=== PATIENT | male | born 1960 | race African-American/Black ===

== ENCOUNTER → 2019-04-21 | Outpatient (CLI) | payer OTHER ==
[~2019-04-21] MED LIST: ALBUTEROL SULFATE 0.083% NEB 2.5 MG/3 ML AMPUL NEB ONE
--- NOTE | 2019-04-22 10:08 | Pulmonary Function Test ---
Pulmonary Function Test Date of Procedure:: 04/22/19 INDICATION:: Dyspnea Referring Provider: Dr. Hernandes Bpm Analyst: Jasmine Nunez SENIOR CHEMICAL ENGINEER - Report Spirometry: Spirometry: pre-FVC: 2.65 L 68% post-FVC: 2.93 L 75% pre-FEV:1 1.82 L 58% post-FEV1: 2.31 L 73% pre-FEV1/FVC %: 69 post-FEV1/FVC%: 79 predicted: 81 [id number]%: 1.07 L 32% [id number]%: 2.20 L 67% Impression: Mild obstructive ventilatory defect. Good response to bronchodilator therapy. Restrictive defect is inferred by the decrease FVC. (Restrictive defect may mask the degree of obstruction.) If clinically indicated complete pulmonary function test would be warranted.
== END ==
LOC: RT 09:19
PROVIDERS: ATTEND Family Medicine
DX: R06.02 Shortness of breath (principal); R05 Cough
CPT/HCPCS: 94060

== ENCOUNTER 2020-08-12 09:15 | Emergency (ER) | payer OTHER ==
[2020-08-12] MEDS ORDERED: DEXAMETHASONE 4 MG TABLET PO ONE (10:48)
[2020-08-12] MEDS ORDERED: IPRATROPIUM/ALBUTEROL 0.5-2.5 MG/3 ML AMPUL NEB ONE (10:48)
--- NOTE | 2020-08-12 11:11 | ER Document Report ---
ED Respiratory Problem - General Chief Complaint: Shortness Of Breath Stated Complaint: BREATHING PROBLEM Primary Care Provider: SONIA URRUTIA MD [Primary Care Provider] - Follow up as needed Notes: CHIEF COMPLAINT: Shortness of breath HPI: 60-year-old male with asthma history presenting for shortness of breath over the last 2 days. is Covid positive at home. He has not had a fever. States when he has these episodes he normally can use his inhaler at home with relief but it has not been helping over the last 24 hours. No chest pain. Does report shortness of breath that feels similar to prior asthma exacerbations ROS: See HPI - all other systems were reviewed and are otherwise negative Constitutional: no fever Eyes: no drainage, no blurred vision ENT: no runny nose, no sore throat Cardiovascular: no chest pain Resp: + SOB, + cough GI: no vomiting, no diarrhea, no abdominal pain : no dysuria Integumentary: no rash Allergy: no hives Musculoskeletal: no extremity pain or swelling Neurological: no numbness/tingling, no weakness MEDICATIONS: I agree with the patient medications as charted by the RN. ALLERGIES: I agree with the allergies as charted by the RN. PAST MEDICAL HISTORY/PAST SURGICAL HISTORY: Reviewed and agree as charted by RN. SOCIAL HISTORY: Reviewed and agree as charted by RN. FAMILY HISTORY: No significant familial comorbid conditions directly related to patient complaint EXAM: Reviewed vital signs as charted by RN. CONSTITUTIONAL: Alert and oriented and responds appropriately to questions. Well-appearing; well-nourished HEAD: Normocephalic; atraumatic EYES: PERRL; Conjunctivae clear, sclerae non-icteric ENT: normal nose; no rhinorrhea; moist mucous membranes; pharynx without lesions noted, no uvula edema or deviation, no tonsillar hypertrophy, phonation normal NECK: Supple without meningismus; non-tender; no cervical lymphadenopathy, no masses CARD: RRR; no murmurs, no clicks, no rubs, no gallops; symmetric distal pulses RESP: Normal chest excursion without splinting. Mild tachypnea; breath sounds clear and equal bilaterally; no wheezes, no rhonchi, no rales, pulse oximetry 95% on room air not hypoxic ABD/GI: Normal bowel sounds; non-distended; soft, non-tender, no rebound, no guarding; no palpable organomegaly or masses. BACK: The back appears normal and is non-tender to palpation, there is no CVA tenderness EXT: Normal ROM in all joints; non-tender to palpation; no cyanosis, no effusions, no edema SKIN: Normal color for age and race; warm; dry; good turgor; no acute lesions noted NEURO: Moves all extremities equally; Motor and sensory function intact PSYCH: The patient's mood and manner are appropriate. Grooming and personal hygiene are appropriate. MDM: 60-year-old male presenting with shortness of breath over the last 2 days. No chest pain. Patient quarantining at home with Covid. Will obtain Covid screen will obtain chest x-ray will give breathing treatment and steroids The patient was evaluated during the global COVID-19 pandemic and that diagnosis was suspected/considered upon their initial presentation. Their evaluation, treatment and testing was consistent with current guidelines for patients who present with complaints or symptoms that may be related to COVID-19 TRAVEL OUTSIDE OF THE [place] IN LAST 30 DAYS: No - Related Data Allergies/Adverse Reactions: latex [Latex] Allergy (Verified 08/23/12 22:39) Penicillins Allergy (Verified 08/23/12 22:39) Home Medications: albuterol, crestor, farxiga Past Medical History - Social History Smoking Status: Former Smoker Chew tobacco use (# tins/day): No Frequency of alcohol use: None Drug Abuse: None Family History: Reviewed & Not Pertinent - Past Medical History Cardiac Medical History: Reports: Hx Hypercholesterolemia Denies: Hx Coronary Artery Disease, Hx Heart Attack, Hx Hypertension Pulmonary Medical History: Reports: Hx Asthma, Hx Bronchitis Denies: Hx Pneumonia Neurological Medical History: Denies: Hx Cerebrovascular Accident, Hx Seizures Endocrine Medical History: Reports: Hx Diabetes Mellitus Type 2 Musculoskeletal Medical History: Reports Hx Arthritis Past Surgical History: Reports: Hx Cholecystectomy - Immunizations Immunizations up to date: Yes Hx Diphtheria, Pertussis, Tetanus Vaccination: Yes Physical Exam - Vital signs Vitals: Temp Pulse Resp BP Pulse Ox 99.2 F 97 20 130/73 H 95 08/12/20 09:29 08/12/20 09:29 08/12/20 09:29 08/12/20 09:29 08/12/20 09:29 Course - Re-evaluation Re-evalutation: 08/12/20 13:21 Patient feels much better after breathing treatments and steroids. He is Covid positive. Will place on Zithromax, Decadron, albuterol, cough medication, follow-up PCP he will self quarantine at home - Vital Signs Vital signs: Temp Pulse Resp BP Pulse Ox 99.2 F 97 20 130/73 H 95 08/12/20 09:29 08/12/20 09:29 08/12/20 09:29 08/12/20 09:29 08/12/20 09:29 - Laboratory Results Laboratory Results Interpreted: 08/12/20 11:45 SARS-CoV-2 (PCR) DETECTED H Critical Laboratory Results Reviewed: No Critical Results - Radiology Results Critical Radiology Results Reviewed: No Critical Results Discharge - Discharge Clinical Impression: COVID-19 virus detected Dyspnea Qualifiers: Dyspnea type: shortness of breath Qualified Code(s): R06.02 - Shortness of breath; R06.00 - Dyspnea, unspecified; R06.01 - Orthopnea Condition: Stable Disposition: HOME, SELF-CARE Instructions: COVID-19 Guidance for Persons Under Investigation Additional Instructions: Your Covid test today was positive self quarantine at home for the next 10 days. Take the medications as prescribed. Use the albuterol inhaler 2 puffs every 4 hours as needed for shortness of breath. Follow-up with your primary care provider for reevaluation of symptoms call for appointment. If you were p rescribed a cough medication do not drive on this medication as it can make you drowsy. Return for worsening symptoms or shortness of breath Prescriptions: Hydrocodone Bit/Homatropine [Hycodan 5-1.5 mg Tablet] 1 tab PO Q4HP PRN #24 tablet PRN Reason: Dexamethasone [Decadron 4 Mg Tablet] 4 mg PO DAILY #7 tablet Albuterol Sulfate [Proair HFA Inhalation Aerosol 8.5 gm MDI] 2 puff IH Q4H PRN #1 mdi PRN Reason: Azithromycin [Zithromax 250 mg Tablet] 250 mg PO ASDIR PRN #6 tablet PRN Reason: Referrals: SONIA URRUTIA MD [Primary Care Provider] - Follow up as needed
--- NOTE | 2020-08-12 11:14 | RADIOLOGY REPORT (SQ) ---
EXAM DESCRIPTION: CHEST SINGLE VIEW IMAGES COMPLETED DATE/TIME: 08/12/2020 10:00 am REASON FOR STUDY: shortness of breath, cough COMPARISON: None. EXAM PARAMETERS: NUMBER OF VIEWS: One view. TECHNIQUE: Single frontal radiographic view of the chest acquired. RADIATION DOSE: NA LIMITATIONS: None. FINDINGS: LUNGS AND PLEURA: No opacities, masses or pneumothorax. No pleural effusion. MEDIASTINUM AND HILAR STRUCTURES: No masses. Contour normal. HEART AND VASCULAR STRUCTURES: Heart normal in size. Normal vasculature. BONES: No acute findings. HARDWARE: None in the chest. OTHER: No other significant finding. IMPRESSION: NO ACUTE RADIOGRAPHIC FINDING IN THE CHEST. TECHNICAL DOCUMENTATION: JOB ID: [id number] 2010 [employer]- All Rights Reserved Reading location - IP/workstation name: [email or web address]
[2020-08-12] MEDS: KETOROLAC TROMETHAMINE 60 MG/2 ML SDV IM ONE ×2 (12:12→12:30)
[2020-08-12] MEDS: OXYCODONE-ACETAMINOPHEN 5-325 MG TABLET PO ONE ×2 (12:13→12:30)
[2020-08-12 14:27] VITALS: BP 137/70
== END 2020-08-12 14:27 | disposition home or self-care (01) ==
LOC: ER 09:15
DX: U07.1 COVID-19 (principal); J45.909 Unspecified asthma, uncomplicated; E78.00 Pure hypercholesterolemia, unspecified; E11.9 Type 2 diabetes mellitus without complications; Z87.891 Personal history of nicotine dependence; Z79.899 Other long term (current) drug therapy; Z79.84 Long term (current) use of oral hypoglycemic drugs; Z91.040 Latex allergy status; Z88.0 Allergy status to penicillin
CPT/HCPCS: 94640; 99284; 0202U ×23; 71045; J8540; J1885

== ENCOUNTER 2020-08-15 01:15 | Inpatient (IN) | payer OTHER ==
[2020-08-15 01:48] LABS: ABSOLUTE LYMPHOCYTES (AUTO) 0.7 10^3/uL (0.5-4.7); ABSOLUTE MONOCYTES (AUTO) 0.8 10^3/uL (0.1-1.4); ABSOLUTE NEUT (AUTO) 7.7 10^3/uL (1.7-8.2); BASOPHILS % (AUTO) 0.1 % (0-2); HEMATOCRIT 37.8 % (37.9-51.0); HEMOGLOBIN 12.9 g/dL (13.5-17.0); MEAN CORPUSCULAR HGB CONC 34.2 g/dL (32.0-36.0); MEAN CORPUSCULAR VOLUME 85 fl (80-97); MONOCYTES % (AUTO) 8.3 % (3-13); PLATELET COUNT 264 10^3/uL (150-450); RED BLOOD COUNT 4.47 10^6/uL (4.35-5.55); SEGMENTED NEUTROPHILS % (AUTO) 83.6 % (42-78); TOTAL CELLS COUNTED % (AUTO) 100 %; WHITE BLOOD COUNT 9.2 10^3/uL (4.0-10.5)
[2020-08-15 02:18] LABS: VENOUS BLOOD BASE EXCESS 1.8 mmol/L; VENOUS BLOOD HCO3 25.9 mmol/L (20-32); VENOUS BLOOD PH 7.44 (7.30-7.42)
--- NOTE | 2020-08-15 02:23 | RADIOLOGY REPORT (SQ) ---
CLINICAL HISTORY: +COVID; shortness of breath COMPARISON: 08/12/2020. TECHNIQUE: XR CHEST 1 VIEW 08/15/2020 12:00 AM PLATE EMBOSSER FINDINGS: The heart is borderline in size. There is minimal bibasilar airspace disease. There is no pleural effusion. There is no pneumothorax. There are no acute osseous findings. IMPRESSION: Possible bibasilar pneumonia.
[2020-08-15] MEDS ORDERED: LEVOFLOXACIN 750 MG/D5W RTU 750 MG/150 ML RTUPB IV ONE (02:30)
[2020-08-15] MEDS ORDERED: ACETAMINOPHEN 325 MG TABLET PO ONE (02:30)
--- NOTE | 2020-08-15 02:33 | ER Document Report ---
ED Respiratory Problem - General Chief Complaint: Shortness Of Breath Stated Complaint: SHORTNESS OF BREATH Time Seen by Provider: 08/15/20 02:29 Mode of Arrival: Ambulatory Information source: Patient Notes: 60-year-old male with a past medical history significant for asthma and diabetes presents to the emergency room with worsening shortness of breath that he has had for the past 3 days. Patient states he was seen here on August 12 was diagnosed with Covid was discharged home on Zithromax, Decadron, albuterol, and cough medicine. States he has had to use his nebulizer for the past 2 days without improvement. States his tested positive on August 05 for Covid he had not been tested prior to this episode not on home oxygen. TRAVEL OUTSIDE OF THE [place] IN LAST 30 DAYS: No - Related Data Allergies/Adverse Reactions: latex [Latex] Allergy (Verified 08/23/12 22:39) Penicillins Allergy (Verified 08/23/12 22:39) Home Medications: hydrocodone, dexamethasone, azithromycin5 Past Medical History - General Information source: Patient - Social History Smoking Status: Former Smoker Frequency of alcohol use: None Drug Abuse: None Family History: Reviewed & Not Pertinent Patient has homicidal ideation: No - Past Medical History Cardiac Medical History: Reports: Hx Hypercholesterolemia Denies: Hx Coronary Artery Disease, Hx Heart Attack, Hx Hypertension Pulmonary Medical History: Reports: Hx Asthma, Hx Bronchitis Denies: Hx Pneumonia Neurological Medical History: Denies: Hx Cerebrovascular Accident, Hx Seizures Endocrine Medical History: Reports: Hx Diabetes Mellitus Type 2 Musculoskeletal Medical History: Reports Hx Arthritis Past Surgical History: Reports: Hx Cholecystectomy - Immunizations Immunizations up to date: Yes Hx Diphtheria, Pertussis, Tetanus Vaccination: Yes Review of Systems - Review of Systems Constitutional: No symptoms reported EENT: No symptoms reported Cardiovascular: No symptoms reported Respiratory: Short of breath, Wheezing Gastrointestinal: No symptoms reported Genitourinary: No symptoms reported Musculoskeletal: No symptoms reported Skin: No symptoms reported Neurological/Psychological: No symptoms reported -: Yes All other systems reviewed and negative Physical Exam - Vital signs Vitals: Resp Pulse Ox 28 H 97 08/15/20 01:16 08/15/20 01:16 - General General appearance: Appears well, Alert In distress: Moderate - Respiratory Respiratory status: Respiratory distress, Tachypnea Chest status: Nontender Breath sounds: Normal Chest palpation: Normal - Cardiovascular Rhythm: Tachycardia Heart sounds: Normal auscultation Murmur: No - Neurological Neuro grossly intact: Yes Cognition: Normal Orientation: AAOx4 Michael Coma Scale Eye Opening: Spontaneous Michael Coma Scale Verbal: Oriented Michael Coma Scale Motor: Obeys Commands [place] Coma Scale Total: 15 Speech: Normal Motor strength normal: LUE, RUE, LLE, RLE Sensory: Normal - Skin Skin Temperature: Warm Skin Moisture: Dry Skin Color: Normal Course - Re-evaluation Re-evalutation: 08/15/20 02:49 Reviewed lab and x-ray results with patient. Patient is tachypneic and hypoxic on examination. Tachycardic. Febrile. Patient has been on p.o. azithromycin for 3 days. We will switch to IV Levaquin. Increase oxygen to 3 L nasal cannula. Patient aware of bibasilar pneumonia on x-ray. Remaining labs are still pending. - Vital Signs Vital signs: Temp Pulse Resp BP Pulse Ox 100.5 F H 104 H 22 H 134/73 H 95 08/15/20 01:31 08/15/20 01:29 08/15/20 04:08 08/15/20 04:08 08/15/20 04:08 - Laboratory Results Result Diagrams: 08/15/20 01:25 08/15/20 01:25 Laboratory Results Interpreted: 08/15/20 08/15/20 08/15/20 01:25 01:25 01:25 Hgb 12.9 L Hct 37.8 L RDW 15.0 H Lymph % (Auto) 8.0 L Seg Neutrophils % 83.6 H VBG pH 7.44 H Glucose 138 H Critical Laboratory Results Reviewed: No Critical Results - Radiology Results Critical Radiology Results Reviewed: Yes - Bibasilar pneumonia Attending or Supervising Physician who Reviewed Radiology: PRANAV POMPA IV - Started on IV Levaquin - EKG Interpretation by Wy EKG shows normal: Sinus rhythm Additional EKG results interpreted by me: 08/15/20 02:47 EKG was interpreted by ER physician Dr. Cintron No acute STEMI Normal sinus rhythm Rate 97 Borderline left axis deviation Borderline T wave abnormality No previous EKG for comparison - Consults Dr. Ortega Time consulted: 04:25 - Accepts admission Reason for consultation: 08/15/20 04:41 Discussed lab findings, physical presentation, vital signs. Agrees to admission. Consulted provider: will come to ER Discharge - Discharge Clinical Impression: COVID-19, Pneumonia due to COVID-19 virus, Tachypnea, Hypoxia, COVID-19 virus detected Condition: Good Disposition: ADMITTED INPATIENT Admitting Provider: Jordan (Hospitalist) Unit Admitted: Medical Floor
[2020-08-15 02:36] LABS: ALBUMIN 3.8 g/dL (3.5-5.0); ALKALINE PHOSPHATASE 79 U/L (38-126); ANION GAP 9 (5-19); ASPARTATE AMINO TRANSFERASE 29 U/L (17-59); BILIRUBIN,DIRECT 0.3 mg/dL (0.0-0.4); BILIRUBIN,TOTAL 0.8 mg/dL (0.2-1.3); BLOOD UREA NITROGEN 15 mg/dL (7-20); CALCIUM 8.7 mg/dL (8.4-10.2); CARBON DIOXIDE 27 mmol/L (22-30); CHLORIDE 103 mmol/L (98-107); GLUCOSE 138 mg/dL (75-110); POTASSIUM 3.8 mmol/L (3.6-5.0); TOTAL PROTEIN 7.1 g/dL (6.3-8.2)
[2020-08-15] MEDS ORDERED: MAGNESIUM CITRATE 296 ML BOTTLE PO ONE (04:15)
[2020-08-15] MEDS ORDERED: ONDANSETRON ODT 4 MG TAB (6 TAB/ER DISP) PO PRN (04:15)
[2020-08-15] MEDS ORDERED: ONDANSETRON 4 MG TAB.RAPDIS PO PRN (05:16)
[2020-08-15] MEDS ORDERED: ONDANSETRON HCL INJ/PF 4 MG/2 ML SDV IV PRN (05:16)
[2020-08-15] MEDS ORDERED: IPRATROPIUM/ALBUTEROL 0.5-2.5 MG/3 ML AMPUL NEB PRN (05:16)
[2020-08-15] MEDS ORDERED: BENZONATATE 100 MG CAPSULE PO PRN (05:26)
--- NOTE | 2020-08-15 05:35 | PDOC H&P ---
History of Present Illness Admission Date/PCP: 08/15/20 04:58 SONIA URRUTIA MD History of Present Illness: REN MALIN SR is a 60 year old male with past medical history significant for T2DM, chronic asthma who presents the ED with 5-day history of progressive fever/chills/shortness of breath/FABIAN/productive cough. Patient's diagnosed with COVID-19 on 08/05/2020 and patient began developing symptoms on 08/11, subsequently tested positive for COVID-19 on 08/12 patient came to the ED here. Patient was discharged home with oral steroids and azithromycin. Unfortunately, patient continued to decline with regards to his breathing status and he returned to the hospital today with oxygen saturations in the mid to lower 80s at rest. Patient does not require home oxygen prior to admission. Chest x-ray showed bilateral infiltrates. WBC count 9.2. Patient was given a dose of Le vaquin in the ED. Patient admitted to Covid unit with standard of care treatment. Past Medical History Cardiac Medical History: Reports: Hyperlipidema Denies: Coronary Artery Disease, Myocardial Infarction, Hypertension Pulmonary Medical History: Reports: Asthma, Bronchitis Denies: Pneumonia Neurological Medical History: Denies: Seizures Endocrine Medical History: Reports: Diabetes Mellitus Type 2 Musculoskeltal Medical History: Reports: Arthritis Hematology: Denies: Anemia Past Surgical History Past Surgical History: Reports: Cholecystectomy Social History Information Source: Patient, Emergency Med Personnel Lives with: Family Smoking Status: Former Smoker Electronic Cigarette use?: No Hx Recreational Drug Use: No Hx Prescription Drug Abuse: No - Advance Directive Resuscitation Status: Full Code Surrogate healthcare decision maker:: Admitting diagnosis: COVID-19 pneumonia All aspects of code status discussed with patient/POA including cardioversion, chest compressions, and intubation and the patient/POA indicated they wish to be full code MPOA is designated as: Nancy Time spent: Greater than 16 minutes Family History Family History: Reviewed & Not Pertinent, CAD, Malignancy Parental Family History Reviewed: Yes Children Family History Reviewed: Yes Sibling(s) Family History Reviewed.: Yes Medication/Allergy Home Medications: Pravastatin Sodium [Pravachol] 80 mg PO DAILY 08/23/12 Oxycodone HCl/Acetaminophen [Percocet 5-325 mg Tablet] 1 tab PO QID PRN 10/18/12 Hydrocodone/Acetaminophen [[place] 5-325 mg Tablet] 1 tab PO Q6 #20 tablet 11/28/15 Tamsulosin HCl [Flomax 0.4 mg Cap.sr] 0.4 mg PO DAILY #7 cap.sr.24h 11/28/15 Albuterol Sulfate [Proair HFA Inhalation Aerosol 8.5 gm MDI] 2 puff IH Q4H PRN #1 mdi 08/12/20 Azithromycin [Zithromax 250 mg Tablet] 250 mg PO ASDIR PRN #6 tablet 08/12/20 Dexamethasone [Decadron 4 Mg Tablet] 4 mg PO DAILY #7 tablet 08/12/20 Hydrocodone Bit/Homatropine [Hycodan 5-1.5 mg Tablet] 1 tab PO Q4HP PRN #24 tablet 08/12/20 Allergies/Adverse Reactions: latex [Latex] Allergy (Verified 08/23/12 22:39) Penicillins Allergy (Verified 08/23/12 22:39) Review of Systems All systems: reviewed and no additional remarkable complaints except as stated - Per HPI otherwise negative Physical Exam Vital Signs: Temp Pulse Resp BP Pulse Ox 100.5 F H 104 H 22 H 134/73 H 95 08/15/20 01:31 08/15/20 01:29 08/15/20 04:08 08/15/20 04:08 08/15/20 04:08 Intake & Output 08/13/20 08/14/20 08/15/20 06:59 06:59 06:59 Intake Total 150 Balance 150 Weight 100.3 kg Exam: General appearance: PRESENT: no acute distress, well-developed, well-nourished, acutely ill-appearing -Turkmen male, obese with BMI 34.6 Head exam: PRESENT: atraumatic, normocephalic Eye exam: PRESENT: conjunctiva pink. ABSENT: scleral icterus Mouth exam: PRESENT: moist Respiratory exam: PRESENT: Scant bilateral crackles ABSENT: rales, wheezes Cardiovascular exam: PRESENT: RRR. ABSENT: diastolic murmur, rubs, systolic murmur GI/Abdominal exam: PRESENT: normal bowel sounds, soft. ABSENT: distended, guarding, mass, organolmegaly, rebound, tenderness Neurological exam: PRESENT: alert, awake, oriented to person, oriented to place, oriented to time, oriented to situation Psychiatric exam: PRESENT: appropriate affect, normal mood Skin exam: PRESENT: dry, intact, warm Results Laboratory Results: 08/15/20 01:25 08/15/20 01:25 08/15/20 08/15/20 08/15/20 01:25 01:25 01:25 WBC 9.2 RBC 4.47 Hgb 12.9 L Hct 37.8 L MCV 85 MCH 29.0 MCHC 34.2 RDW 15.0 H Plt Count 264 Seg Neutrophils % 83.6 H VBG pH VBG pCO2 VBG HCO3 VBG Base Excess Sodium 138.7 Potassium 3.8 Chloride 103 Carbon Dioxide 27 Anion Gap 9 BUN 15 Creatinine 0.96 Est GFR ( Amer) > 60 Glucose 138 H Lactic Acid 1.4 Calcium 8.7 Total Bilirubin 0.8 AST 29 Alkaline Phosphatase 79 Total Protein 7.1 Albumin 3.8 08/15/20 01:25 WBC RBC Hgb Hct MCV MCH MCHC RDW Plt Count Seg Neutrophils % VBG pH 7.44 H VBG pCO2 39.0 VBG HCO3 25.9 VBG Base Excess 1.8 Sodium Potassium Chloride Carbon Dioxide Anion Gap BUN Creatinine Est GFR ( Amer) Glucose Lactic Acid Calcium Total Bilirubin AST Alkaline Phosphatase Total Protein Albumin 08/15/20 03:06 Troponin I < 0.012 Impressions: Chest X-Ray 08/15/20 00:00 IMPRESSION: Possible bibasilar pneumonia. Assessment and Plan - Diagnosis (1) Pneumonia due to COVID-19 virus Is this a current diagnosis for this admission?: Yes Plan: -Symptoms/history consistent with covid-19 infection -Covid-19 test: 08/12 -CXR showed: Bilateral infiltrates -standard of care vitamin supplements: zinc, ascorbic acid, vitamin d, melatonin -maintain magnesium of 2 mg/dL or higher -Current literaturedoes not show clear benefit from the use of remdesivir, plaquenil, and convalescent plasma -supplemental oxygen and BiPAP/CPAP as needed -prn combivent/nebs as able -do not hold anticoagulation unless actively bleeding or platelet count <50 -close monitoring for acute respiratory decline requiring ICU transfer and intubation -consider ivermectin/doxycycline combination therapy (2) Acute hypoxemic respiratory failure Is this a current diagnosis for this admission?: Yes Plan: Due to Covid pneumonia as above Supplemental oxygen to maintain saturation of 92% or higher Bronchial hygiene, pulmonary toilet Nebs as needed (3) T2DM (type 2 diabetes mellitus) Qualifiers: Diabetes mellitus manager terminal insulin use: without senior care use Diabetes mellitus complication status: without complication Qualified Code(s): E11.9 - Type 2 diabetes mellitus without complications Is this a current diagnosis for this admission?: Yes Plan: T2DM -accucheks, sliding scale insulin -long acting insulin indicated for HgA1C of 10 or greater -diet counseling -outpt FU with PCP (4) Obesity (BMI 30-39.9) Is this a current diagnosis for this admission?: Yes Plan: Needs to be counseled on weight loss (5) Chronic asthma Qualifiers: Asthma severity: mild Asthma persistence: intermittent Asthma complication type: uncomplicated Qualified Code(s): J45.20 - Mild intermittent asthma, uncomplicated Is this a current diagnosis for this admission?: Yes Plan: Does not follow with pulmonology Nebs as needed Uses home albuterol nebulizer intermittently - Time Time Spent with patient: 35 or more minutes Medications reviewed and adjusted accordingly: Yes Anticipated Discharge Disposition: Home, Self Care Anticipated Discharge Timeframe: within 72 hours - Inpatient Certification Based on my medical assessment, after consideration of the patient's comorbidities, presenting symptoms, or acuity I expect that the services needed warrant INPATIENT care.: Yes I certify that my determination is in accordance with my understanding of Medicare's requirements for reasonable and necessary INPATIENT services [42 CFR 412.3e].: Yes Medical Necessity: Significant Comorbidiites Make Outpatient Treatment Too Risky, Need Close Monitoring Due to Risk of Patient Decompensation, Risk of Complication if Not Cared For in Hospital, Risk of Diagnosis Which Will Require Inpatient Eval/Care/Monitoring
[2020-08-15] MEDS: METHYLPREDNISOLONE INJ 40 MG/1 ML SDV IV SCH ×2 (05:59→18:14)
[2020-08-15] MEDS ORDERED: DOXYCYCLINE HYCLATE INJ 100 MG VIAL IV SCH (06:00)
[2020-08-15 06:08] LABS: ABSOLUTE LYMPHOCYTES (AUTO) 0.5 10^3/uL (0.5-4.7); ABSOLUTE MONOCYTES (AUTO) 0.8 10^3/uL (0.1-1.4); ABSOLUTE NEUT (AUTO) 7.5 10^3/uL (1.7-8.2); BASOPHILS % (AUTO) 0.4 % (0-2); EOSINOPHILS % (AUTO) 0.3 % (0-6); HEMATOCRIT 36.2 % (37.9-51.0); HEMOGLOBIN 12.2 g/dL (13.5-17.0); LYMPHOCYTES % (AUTO) 5.7 % (13-45); MEAN CORPUSCULAR HEMOGLOBIN 28.9 pg (27.0-33.4); MEAN CORPUSCULAR HGB CONC 33.8 g/dL (32.0-36.0); MEAN CORPUSCULAR VOLUME 85 fl (80-97); MONOCYTES % (AUTO) 8.8 % (3-13); PLATELET COUNT 244 10^3/uL (150-450); RED BLOOD COUNT 4.24 10^6/uL (4.35-5.55); RED CELL DISTRIBUTION WIDTH 15.1 % (11.5-14.0); SEGMENTED NEUTROPHILS % (AUTO) 84.8 % (42-78); TOTAL CELLS COUNTED % (AUTO) 100 %; WHITE BLOOD COUNT 8.8 10^3/uL (4.0-10.5)
[2020-08-15 06:30] LABS: ANION GAP 6 (5-19); BLOOD UREA NITROGEN 14 mg/dL (7-20); CALCIUM 8.3 mg/dL (8.4-10.2); CARBON DIOXIDE 29 mmol/L (22-30); CHLORIDE 102 mmol/L (98-107); GLUCOSE 106 mg/dL (75-110); PHOSPHORUS 3.4 mg/dL (2.5-4.5)
[2020-08-15 06:34] LABS: APPEARANCE,URINE CLEAR; BILIRUBIN,URINE NEGATIVE (NEGATIVE); COLOR,URINE YELLOW; GLUCOSE, URINE >=500 mg/dL (NEGATIVE); KETONES,URINE TRACE mg/dL (NEGATIVE); LEUKOCYTE ESTERASE,URINE NEGATIVE (NEGATIVE); NITRITE,URINE NEGATIVE (NEGATIVE); PROTEIN,URINE 30 mg/dL (NEGATIVE); URINE SPECIFIC GRAVITY 1.025; UROBILINOGEN,URINE NEGATIVE mg/dL (<2.0)
[2020-08-15 07:13] LABS: C-REACTIVE PROTEIN 172.7 mg/L (<10.0)
[2020-08-15] MEDS: INSULIN LISPRO 100 UNIT/ML 3 ML VIAL SUBCUT SCH ×4 (09:41→22:08)
[2020-08-15] MEDS: IVERMECTIN 3 MG TABLET PO SCH (10:32)
[2020-08-15] MEDS: ENOXAPARIN SODIUM INJ 40 MG/0.4 ML DISP.SYRIN SUBCUT SCH (10:32)
[2020-08-15] MEDS: CHOLECALCIFEROL (D3) 1,000 UNIT (25 MCG) TABLET PO SCH (10:33)
[2020-08-15] MEDS: DOCUSATE SODIUM 100 MG CAPSULE PO SCH ×2 (10:33→11:21)
[2020-08-15] MEDS: TAMSULOSIN HCL 0.4 MG CAP.SR.24H PO SCH ×2 (10:33→11:22)
[2020-08-15] MEDS: ZINC SULFATE 220 MG CAPSULE PO SCH (10:33)
[2020-08-15] MEDS: ASCORBIC ACID 500 MG TABLET PO SCH ×2 (10:34→18:14)
[2020-08-15] MEDS: VITAMIN B COMPLEX TABLET PO SCH (10:34)
--- NOTE | 2020-08-15 15:14 | PDOC PROGRESS REPORT ---
Subjective Date:: 08/15/20 Subjective:: REN MALIN SR is a 60 year old male with past medical history significant fo r T2DM, chronic asthma who presents the ED with 5-day history of progressive fever/chills/shortness of breath/FABIAN/productive cough. Patient's diagnosed with COVID-19 on 08/05/2020 and patient began developing symptoms on 08/11, subsequently tested positive for COVID-19 on 08/12 patient came to the ED here. Patient was discharged home with oral steroids and azithromycin. Unfortunately, patient continued to decline with regards to his breathing status and he returned to the hospital today with oxygen saturations in the mid to lower 80s at rest. Patient does not require home oxygen prior to admission. Chest x-ray showed bilateral infiltrates. WBC count 9.2. Patient was given a dose of L evaquin in the ED. Patient admitted to Covid unit with standard of care treatment. D1 hospital stay 08/15/20 Patient was seen and examined at bedside. On 6L O2 via NC sats 95%,feels that he's breathing easier. No chest pain, no diarrhea, no palpitations. Afebrile. I was able to speak to his Nancy and updated her Reason For Visit: COVID19 PNEUMONIA,ACUTE HYPOXEMIC RESPIRATORY Physical Exam Vital Signs: Temp Pulse Resp BP Pulse Ox 98.9 F 84 20 115/63 97 08/15/20 11:23 08/15/20 11:23 08/15/20 11:23 08/15/20 11:23 08/15/20 11:23 Intake & Output 08/14/20 08/15/20 08/16/20 06:59 06:59 06:59 Intake Total 150 Output Total 700 Balance -550 Weight 100.3 kg 106.8 kg General appearance: PRESENT: cooperative, mild distress Head exam: PRESENT: atraumatic, normocephalic Eye exam: PRESENT: EOMI, PERRLA Mouth exam: PRESENT: moist Neck exam: PRESENT: full ROM Respiratory exam: PRESENT: crackles, rales, symmetrical, tachypnea Cardiovascular exam: PRESENT: RRR, +S1, +S2 GI/Abdominal exam: PRESENT: normal bowel sounds, soft. ABSENT: rebound, tenderness Extremities exam: PRESENT: full ROM, tenderness Musculoskeletal exam: PRESENT: full ROM Neurological exam: PRESENT: alert, awake, oriented to person, oriented to place, oriented to time, oriented to situation Psychiatric exam: PRESENT: normal mood Skin exam: PRESENT: normal color Results Laboratory Results: 08/15/20 06:00 08/15/20 06:00 08/15/20 08/15/20 08/15/20 01:25 01:25 01:25 WBC 9.2 RBC 4.47 Hgb 12.9 L Hct 37.8 L MCV 85 MCH 29.0 MCHC 34.2 RDW 15.0 H Plt Count 264 Seg Neutrophils % 83.6 H VBG pH VBG pCO2 VBG HCO3 VBG Base Excess Sodium 138.7 Potassium 3.8 Chloride 103 Carbon Dioxide 27 Anion Gap 9 BUN 15 Creatinine 0.96 Est GFR ( Amer) > 60 Glucose 138 H Lactic Acid 1.4 Calcium 8.7 Phosphorus Magnesium Ferritin Total Bilirubin 0.8 AST 29 Alkaline Phosphatase 79 C-Reactive Protein Total Protein 7.1 Albumin 3.8 Urine Color Urine Appearance Urine pH Ur Specific [place] Urine Protein Urine Glucose (UA) Urine Ketones Urine Blood Urine Nitrite Ur Leukocyte Esterase Urine WBC (Auto) Urine RBC (Auto) 08/15/20 08/15/20 08/15/20 01:25 06:00 06:00 WBC 8.8 RBC 4.24 L Hgb 12.2 L Hct 36.2 L MCV 85 MCH 28.9 MCHC 33.8 RDW 15.1 H Plt Count 244 Seg Neutrophils % 84.8 H VBG pH 7.44 H VBG pCO2 39.0 VBG HCO3 25.9 VBG Base Excess 1.8 Sodium 137.2 Potassium 4.0 Chloride 102 Carbon Dioxide 29 Anion Gap 6 BUN 14 Creatinine 0.97 Est GFR ( Amer) > 60 Glucose 106 Lactic Acid Calcium 8.3 L Phosphorus 3.4 Magnesium 2.3 Ferritin 344.00 Total Bilirubin AST Alkaline Phosphatase C-Reactive Protein 172.7 H Total Protein Albumin Urine Color Urine Appearance Urine pH Ur Specific [place] Urine Protein Urine Glucose (UA) Urine Ketones Urine Blood Urine Nitrite Ur Leukocyte Esterase Urine WBC (Auto) Urine RBC (Auto) 08/15/20 06:08 WBC RBC Hgb Hct MCV MCH MCHC RDW Plt Count Seg Neutrophils % VBG pH VBG pCO2 VBG HCO3 VBG Base Excess Sodium Potassium Chloride Carbon Dioxide Anion Gap BUN Creatinine Est GFR ( Amer) Glucose Lactic Acid Calcium Phosphorus Magnesium Ferritin Total Bilirubin AST Alkaline Phosphatase C-Reactive Protein Total Protein Albumin Urine Color YELLOW Urine Appearance CLEAR Urine pH 7.0 Ur Specific [place] 1.025 Urine Protein 30 H Urine Glucose (UA) >=500 H Urine Ketones TRACE H Urine Blood SMALL H Urine Nitrite NEGATIVE Ur Leukocyte Esterase NEGATIVE Urine WBC (Auto) 1 Urine RBC (Auto) 5 08/15/20 03:06 Troponin I < 0.012 Impressions: Chest X-Ray 08/15/20 00:00 IMPRESSION: Possible bibasilar pneumonia. Assessment and Plan - Diagnosis (1) Acute hypoxemic respiratory failure Is this a current diagnosis for this admission?: Yes Plan: Due to Covid pneumonia as above Supplemental oxygen to maintain saturation of 92% or higher Bronchial hygiene, pulmonary toilet Nebs as needed (2) Pneumonia due to COVID-19 virus Is this a current diagnosis for this admission?: Yes Plan: -Symptoms/history consistent with covid-19 infection -Covid-19 test: 08/12 -CXR showed: Bilateral infiltrates -standard of care vitamin supplements: zinc, ascorbic acid, vitamin d, melatonin -maintain magnesium of 2 mg/dL or higher -Current literature does not show clear benefit from the use of remdesivir, plaquenil, and convalescent plasma -supplemental oxygen and BiPAP/CPAP as needed -prn combivent/nebs as able -do not hold anticoagulation unless actively bleeding or platelet count <50 -close monitoring for acute respiratory decline requiring ICU transfer and intubation -on ivermectin/doxycycline combination therapy (3) T2DM (type 2 diabetes mellitus) Qualifiers: Diabetes mellitus residential insulin use: without terminal computer operator use Diabetes mellitus complication status: without complication Qualified Code(s): E11.9 - Type 2 diabetes mellitus without complications Is this a current diagnosis for this admission?: Yes Plan: T2DM -accucheks, sliding scale insulin -long acting insulin indicated for HgA1C of 10 or greater -diet counseling -outpt FU with PCP (4) Chronic asthma Qualifiers: Asthma severity: mild Asthma persistence: intermittent Asthma complication type: uncomplicated Qualified Code(s): J45.20 - Mild intermittent asthma, uncomplicated Is this a current diagnosis for this admission?: Yes Plan: Does not follow with pulmonology Nebs as needed Uses home albuterol nebulizer intermittently (5) HLD (hyperlipidemia) Qualifiers: Hyperlipidemia type: unspecified Qualified Code(s): E78.5 - Hyperlipidemia, unspecified Is this a current diagnosis for this admission?: Yes Plan: - continue lipitor - Time Time Spent with patient: 25-34 minutes Medications reviewed and adjusted accordingly: Yes Anticipated Discharge Disposition: Home, Self Care Anticipated Discharge Timeframe: tbd
[2020-08-15] MEDS ORDERED: ATORVASTATIN CALCIUM 20 MG TABLET PO SCH (22:00)
[2020-08-15] MEDS: MELATONIN 5 MG TABLET PO SCH (22:14)
--- NOTE | 2020-08-15 22:42 | EKG REPORT ---
SEVERITY:- BORDERLINE ECG - SINUS RHYTHM BORDERLINE LEFT AXIS DEVIATION BORDERLINE T ABNORMALITIES, INFERIOR LEADS : Confirmed by: Alejo Cortez 15-Aug-2020 22:41:19
[2020-08-16] MEDS: METHYLPREDNISOLONE INJ 40 MG/1 ML SDV IV SCH ×2 (06:27→18:08)
[2020-08-16] MEDS: DOXYCYCLINE HYCLATE 100 MG in DEXTROSE 5%-WATER 250 ML IV SCH (06:27)
[2020-08-16 07:11] LABS: HEMOGLOBIN 12.5 g/dL (13.5-17.0); MEAN CORPUSCULAR HEMOGLOBIN 28.7 pg (27.0-33.4); MEAN CORPUSCULAR HGB CONC 33.8 g/dL (32.0-36.0); MEAN CORPUSCULAR VOLUME 85 fl (80-97); PLATELET COUNT 271 10^3/uL (150-450); RED BLOOD COUNT 4.36 10^6/uL (4.35-5.55); WHITE BLOOD COUNT 11.6 10^3/uL (4.0-10.5)
[2020-08-16 07:40] LABS: ANION GAP 9 (5-19); BLOOD UREA NITROGEN 19 mg/dL (7-20); CALCIUM 8.9 mg/dL (8.4-10.2); CARBON DIOXIDE 24 mmol/L (22-30); CHLORIDE 103 mmol/L (98-107); GLUCOSE 126 mg/dL (75-110); PHOSPHORUS 3.6 mg/dL (2.5-4.5); POTASSIUM 4.9 mmol/L (3.6-5.0)
[2020-08-16] MEDS ORDERED: ALBUTEROL SULFATE HFA (90 MCG/PUFF) 8 GM MDI IH PRN (07:40)
[2020-08-16 07:46] LABS: ABSOLUTE LYMPHOCYTES# (MANUAL) 0.2 10^3/uL (0.5-4.7); ABSOLUTE MONOCYTES # (MANUAL) 1.7 10^3/uL (0.1-1.4); BASOPHILS % (MANUAL) 0 % (0-2); EOSINOPHILS % (MANUAL) 0 % (0-6); LYMPHOCYTES % (MANUAL) 1 % (13-45); MONOCYTES % (MANUAL) 15 % (3-13); SEGMENTED NEUTROPHILS % (MAN) 83 % (42-78); TOTAL CELLS COUNTED 100
[2020-08-16 07:47] LABS: ANISOCYTOSIS SLIGHT; OVALOCYTES SLIGHT; PLATELET COMMENT ADEQUATE; POIKILOCYTOSIS SLIGHT
[2020-08-16 07:48] LABS: PLATELET CLUMPS PRESENT
[2020-08-16] MEDS ORDERED: INFLUENZA QUAD (6MOS+) 2020-21 VAC 0.5 ML SYR IM ONE (08:00)
[2020-08-16] MEDS: INSULIN LISPRO 100 UNIT/ML 3 ML VIAL SUBCUT SCH ×4 (09:07→23:32)
--- NOTE | 2020-08-16 10:09 | PDOC PROGRESS REPORT ---
Subjective Date:: 08/16/20 Subjective:: Patient feels quite exhausted. Has mild shortness of breath but comfortable on the nasal cannula. He denies any chest pain or vomiting. Admits to some nausea. Has poor appetite. Has some generalized muscle aches as well. Reason For Visit: COVID19 PNEUMONIA,ACUTE HYPOXEMIC RESPIRATORY Physical Exam Vital Signs: Temp Pulse Resp BP Pulse Ox 98.1 F 78 20 111/65 92 08/16/20 09:00 08/16/20 09:00 08/16/20 09:00 08/16/20 09:00 08/16/20 09:00 Intake & Output 08/15/20 08/16/20 08/17/20 06:59 06:59 06:59 Intake Total 150 1162 Output Total 700 1525 Balance -550 -363 Weight 100.3 kg 107.5 kg General appearance: PRESENT: no acute distress, cooperative, other - Appears fatigued Neck exam: ABSENT: JVD Respiratory exam: PRESENT: crackles, symmetrical, unlabored. ABSENT: tachypnea, wheezes Cardiovascular exam: PRESENT: RRR, +S1, +S2. ABSENT: tachycardia GI/Abdominal exam: PRESENT: soft. ABSENT: rebound, rigid, tenderness Neurological exam: PRESENT: alert, awake, oriented to person, oriented to place, oriented to time, oriented to situation Psychiatric exam: ABSENT: agitated, anxious Results Laboratory Results: 08/16/20 06:01 08/16/20 06:01 08/16/20 08/16/20 06:01 06:01 WBC 11.6 H RBC 4.36 Hgb 12.5 L Hct 37.0 L MCV 85 MCH 28.7 MCHC 33.8 RDW 15.0 H Plt Count 271 Seg Neutrophils % Not Reportable Sodium 136.0 L Potassium 4.9 Chloride 103 Carbon Dioxide 24 Anion Gap 9 BUN 19 Creatinine 0.92 Est GFR ( Amer) > 60 Glucose 126 H Calcium 8.9 Phosphorus 3.6 Magnesium 2.5 H 08/15/20 03:06 Troponin I < 0.012 Impressions: Chest X-Ray 08/15/20 00:00 IMPRESSION: Possible bibasilar pneumonia. Assessment and Plan - Diagnosis (1) Pneumonia due to COVID-19 virus Is this a current diagnosis for this admission?: Yes Plan: Covid-19 test: 08/12 -CXR showed: Bilateral infiltrates Plan for second dose of ivermectin today. Continue Solu-Medrol and doxycycline Continue vitamin and zinc supplements. (2) Acute respiratory failure with hypoxia Is this a current diagnosis for this admission?: Yes Plan: Currently on 4 L. Secondary to COVID-19 pneumonia. Will monitor closely. (3) Chronic asthma Qualifiers: Asthma severity: mild Asthma persistence: intermittent Asthma complication type: uncomplicated Qualified Code(s): J45.20 - Mild intermittent asthma, uncomplicated Is this a current diagnosis for this admission?: Yes Plan: Not in acute exacerbation. Albuterol. (4) T2DM (type 2 diabetes mellitus) Qualifiers: Diabetes mellitus tank terminal gauger insulin use: without tank terminal gauger use Diabetes mellitus complication status: without complication Qualified Code(s): E11.9 - Type 2 diabetes mellitus without complications Is this a current diagnosis for this admission?: Yes Plan: Sliding scale insulin and Accu-Cheks. (5) Obesity (BMI 30-39.9) Is this a current diagnosis for this admission?: Yes - Time Time Spent with patient: Less than 15 minutes Anticipated Discharge Disposition: Home, Self Care Anticipated Discharge Timeframe: within 72 hours
[2020-08-16] MEDS: ENOXAPARIN SODIUM INJ 40 MG/0.4 ML DISP.SYRIN SUBCUT SCH (11:28)
[2020-08-16] MEDS: ASCORBIC ACID 500 MG TABLET PO SCH ×2 (11:29→18:08)
[2020-08-16] MEDS: TAMSULOSIN HCL 0.4 MG CAP.SR.24H PO SCH (11:29)
[2020-08-16] MEDS: ZINC SULFATE 220 MG CAPSULE PO SCH (11:29)
[2020-08-16] MEDS: VITAMIN B COMPLEX TABLET PO SCH (11:29)
[2020-08-16] MEDS: CHOLECALCIFEROL (D3) 1,000 UNIT (25 MCG) TABLET PO SCH (11:30)
[2020-08-16] MEDS: IVERMECTIN 3 MG TABLET PO SCH (11:30)
[2020-08-16] MEDS: DOCUSATE SODIUM 100 MG CAPSULE PO SCH (11:30)
[2020-08-16] MEDS: ALBUTEROL SULFATE HFA (90 MCG/PUFF) 8 GM MDI IH SCH ×3 (11:31→23:48)
[2020-08-16] MEDS ORDERED: REMDESIVIR 200 MG in NORMAL SALINE 250 ML IV ONE (12:00)
[2020-08-16] MEDS: ATORVASTATIN CALCIUM 40 MG TABLET PO SCH (22:41)
[2020-08-16] MEDS: MELATONIN 5 MG TABLET PO SCH (22:41)
[2020-08-17] MEDS: METHYLPREDNISOLONE INJ 40 MG/1 ML SDV IV SCH ×2 (05:24→18:17)
[2020-08-17] MEDS: ALBUTEROL SULFATE HFA (90 MCG/PUFF) 8 GM MDI IH SCH ×3 (05:25→18:17)
[2020-08-17] MEDS: DOXYCYCLINE HYCLATE 100 MG in DEXTROSE 5%-WATER 250 ML IV SCH (05:33)
[2020-08-17 06:34] LABS: HEMATOCRIT 36.4 % (37.9-51.0); HEMOGLOBIN 12.4 g/dL (13.5-17.0); MEAN CORPUSCULAR HGB CONC 34.2 g/dL (32.0-36.0); MEAN CORPUSCULAR VOLUME 85 fl (80-97); PLATELET COUNT 349 10^3/uL (150-450); RED BLOOD COUNT 4.29 10^6/uL (4.35-5.55); RED CELL DISTRIBUTION WIDTH 15.1 % (11.5-14.0); WHITE BLOOD COUNT 14.3 10^3/uL (4.0-10.5)
[2020-08-17 06:51] LABS: ANION GAP 9 (5-19); BLOOD UREA NITROGEN 23 mg/dL (7-20); C-REACTIVE PROTEIN 73.7 mg/L (<10.0); CALCIUM 8.9 mg/dL (8.4-10.2); CARBON DIOXIDE 25 mmol/L (22-30); CHLORIDE 101 mmol/L (98-107); GLUCOSE 144 mg/dL (75-110); POTASSIUM 5.1 mmol/L (3.6-5.0)
[2020-08-17 07:01] LABS: ABSOLUTE LYMPHOCYTES# (MANUAL) 1.1 10^3/uL (0.5-4.7); ABSOLUTE MONOCYTES # (MANUAL) 1.1 10^3/uL (0.1-1.4); BASOPHILS % (MANUAL) 0 % (0-2); EOSINOPHILS % (MANUAL) 0 % (0-6); LYMPHOCYTES % (MANUAL) 8 % (13-45); MONOCYTES % (MANUAL) 8 % (3-13); SEGMENTED NEUTROPHILS % (MAN) 84 % (42-78); TOTAL CELLS COUNTED 100
[2020-08-17 07:02] LABS: PLATELET COMMENT ADEQUATE; RBC MORPHOLOGY COMMENT NORMO-CYTIC/CHROMIC
[2020-08-17] MEDS: INSULIN LISPRO 100 UNIT/ML 3 ML VIAL SUBCUT SCH ×5 (09:06→23:25)
[2020-08-17] MEDS: ZINC SULFATE 220 MG CAPSULE PO SCH (09:06)
[2020-08-17] MEDS: ENOXAPARIN SODIUM INJ 40 MG/0.4 ML DISP.SYRIN SUBCUT SCH (09:06)
[2020-08-17] MEDS: DOCUSATE SODIUM 100 MG CAPSULE PO SCH ×2 (09:07→09:25)
[2020-08-17] MEDS: ASCORBIC ACID 500 MG TABLET PO SCH ×2 (09:07→18:18)
[2020-08-17] MEDS: TAMSULOSIN HCL 0.4 MG CAP.SR.24H PO SCH (09:07)
[2020-08-17] MEDS: CHOLECALCIFEROL (D3) 1,000 UNIT (25 MCG) TABLET PO SCH (09:07)
[2020-08-17] MEDS: VITAMIN B COMPLEX TABLET PO SCH (09:08)
[2020-08-17] MEDS: REMDESIVIR 100 MG in NORMAL SALINE 250 ML IV SCH (10:25)
--- NOTE | 2020-08-17 18:44 | PDOC PROGRESS REPORT ---
Subjective Date:: 08/17/20 Subjective:: Patient is still very fatigued. Still short of breath but comfortable on 4 L na odalis cannula. Appetite remains poor. He was sitting up in chair during encounter. Reason For Visit: COVID19 PNEUMONIA,ACUTE HYPOXEMIC RESPIRATORY Physical Exam Vital Signs: Temp Pulse Resp BP Pulse Ox 98.1 F 77 26 H 102/51 L 95 08/17/20 10:00 08/17/20 14:00 08/17/20 04:21 08/17/20 04:21 08/17/20 04:21 Intake & Output 08/16/20 08/17/20 08/18/20 06:59 06:59 06:59 Intake Total 1162 2220 500 Output Total 1525 1705 Balance -363 515 500 Weight 107.5 kg General appearance: PRESENT: no acute distress, cooperative, other - Fatigue Neck exam: ABSENT: JVD Respiratory exam: PRESENT: crackles, symmetrical, unlabored. ABSENT: tachypnea, wheezes Cardiovascular exam: PRESENT: RRR, +S1, +S2. ABSENT: tachycardia GI/Abdominal exam: PRESENT: soft. ABSENT: rebound, rigid, tenderness Neurological exam: PRESENT: alert, awake, oriented to person, oriented to place, oriented to time, oriented to situation Psychiatric exam: ABSENT: agitated, anxious Results Laboratory Results: 08/17/20 05:37 08/17/20 05:37 08/17/20 08/17/20 05:37 05:37 WBC 14.3 H RBC 4.29 L Hgb 12.4 L Hct 36.4 L MCV 85 MCH 29.0 MCHC 34.2 RDW 15.1 H Plt Count 349 Seg Neutrophils % Not Reportable Sodium 135.3 L Potassium 5.1 H Chloride 101 Carbon Dioxide 25 Anion Gap 9 BUN 23 H Creatinine 0.85 Est GFR ( Amer) > 60 Glucose 144 H Calcium 8.9 Ferritin 584.00 H C-Reactive Protein 73.7 H 08/15/20 06:16 Sputum Gram Stain - Final 08/15/20 06:16 Sputum Sputum Culture - Final NORMAL CESAR 08/15/20 03:06 Troponin I < 0.012 Impressions: Chest X-Ray 08/15/20 00:00 IMPRESSION: Possible bibasilar pneumonia. Assessment and Plan - Diagnosis (1) Pneumonia due to COVID-19 virus Is this a current diagnosis for this admission?: Yes Plan: Covid-19 test: 08/12 -CXR showed: Bilateral infiltrates Status post ivermectin x2 Day 2 of remdesivir-mildly hyperkalemic today secondary to remdesivir so we will monitor metabolic panel 3. Continue Solu-Medrol and doxycycline Continue vitamin and zinc supplements. (2) Acute respiratory failure with hypoxia Is this a current diagnosis for this admission?: Yes Plan: Currently on 4 L. Secondary to COVID-19 pneumonia. Will monitor closely. (3) Chronic asthma Qualifiers: Asthma severity: mild Asthma persistence: intermittent Asthma complication type: uncomplicated Qualified Code(s): J45.20 - Mild intermittent asthma, uncomplicated Is this a current diagnosis for this admission?: Yes Plan: Not in acute exacerbation. Albuterol. (4) T2DM (type 2 diabetes mellitus) Qualifiers: Diabetes mellitus snf insulin use: without snf use Diabetes mellitus complication status: without complication Qualified Code(s): E11.9 - Type 2 diabetes mellitus without complications Is this a current diagnosis for this admission?: Yes Plan: Sliding scale insulin and Accu-Cheks. (5) Obesity (BMI 30-39.9) Is this a current diagnosis for this admission?: Yes - Time Time Spent with patient: 15-24 minutes Anticipated Discharge Disposition: Home, Self Care Anticipated Discharge Timeframe: within 72 hours
[2020-08-17] MEDS: MELATONIN 5 MG TABLET PO SCH (21:33)
[2020-08-17] MEDS: ATORVASTATIN CALCIUM 40 MG TABLET PO SCH (21:33)
[2020-08-18] MEDS: ALBUTEROL SULFATE HFA (90 MCG/PUFF) 8 GM MDI IH SCH ×4 (03:04→17:38)
[2020-08-18] MEDS: DOXYCYCLINE HYCLATE 100 MG in DEXTROSE 5%-WATER 250 ML IV SCH (05:57)
[2020-08-18] MEDS: METHYLPREDNISOLONE INJ 40 MG/1 ML SDV IV SCH ×2 (05:57→17:41)
[2020-08-18 06:56] LABS: ABSOLUTE BASOPHILS # (AUTO) 0.1 10^3/uL (0.0-0.2); ABSOLUTE LYMPHOCYTES (AUTO) 0.8 10^3/uL (0.5-4.7); ABSOLUTE MONOCYTES (AUTO) 1.6 10^3/uL (0.1-1.4); ABSOLUTE NEUT (AUTO) 11.8 10^3/uL (1.7-8.2); BASOPHILS % (AUTO) 0.7 % (0-2); HEMATOCRIT 39.3 % (37.9-51.0); HEMOGLOBIN 13.4 g/dL (13.5-17.0); LYMPHOCYTES % (AUTO) 5.3 % (13-45); MEAN CORPUSCULAR HEMOGLOBIN 28.9 pg (27.0-33.4); MEAN CORPUSCULAR VOLUME 85 fl (80-97); MONOCYTES % (AUTO) 11.3 % (3-13); PLATELET COUNT 378 10^3/uL (150-450); RED BLOOD COUNT 4.64 10^6/uL (4.35-5.55); RED CELL DISTRIBUTION WIDTH 14.8 % (11.5-14.0); SEGMENTED NEUTROPHILS % (AUTO) 82.7 % (42-78); TOTAL CELLS COUNTED % (AUTO) 100 %; WHITE BLOOD COUNT 14.3 10^3/uL (4.0-10.5)
[2020-08-18 07:14] LABS: ANION GAP 7 (5-19); BLOOD UREA NITROGEN 23 mg/dL (7-20); CALCIUM 9.3 mg/dL (8.4-10.2); CARBON DIOXIDE 27 mmol/L (22-30); CHLORIDE 102 mmol/L (98-107); GLUCOSE 144 mg/dL (75-110); POTASSIUM 4.5 mmol/L (3.6-5.0)
[2020-08-18] MEDS: INSULIN LISPRO 100 UNIT/ML 3 ML VIAL SUBCUT SCH ×4 (09:33→21:38)
[2020-08-18] MEDS: CHOLECALCIFEROL (D3) 1,000 UNIT (25 MCG) TABLET PO SCH (09:33)
[2020-08-18] MEDS: DOCUSATE SODIUM 100 MG CAPSULE PO SCH ×2 (09:44→10:05)
[2020-08-18] MEDS: ASCORBIC ACID 500 MG TABLET PO SCH ×2 (09:44→17:41)
[2020-08-18] MEDS: ENOXAPARIN SODIUM INJ 40 MG/0.4 ML DISP.SYRIN SUBCUT SCH (09:44)
[2020-08-18] MEDS: ZINC SULFATE 220 MG CAPSULE PO SCH (09:44)
[2020-08-18] MEDS: TAMSULOSIN HCL 0.4 MG CAP.SR.24H PO SCH (09:44)
[2020-08-18] MEDS: VITAMIN B COMPLEX TABLET PO SCH (09:45)
[2020-08-18] MEDS: REMDESIVIR 100 MG in NORMAL SALINE 250 ML IV SCH (10:15)
--- NOTE | 2020-08-18 16:27 | PDOC PROGRESS REPORT ---
Subjective Date:: 08/18/20 Subjective:: His breathing feels better. He is down to 3 L nasal cannula. States that he do es not like it when the room is hot but prefers the room cold mucosa helps his breathing. Still fatigued but eating much better. Reason For Visit: COVID19 PNEUMONIA,ACUTE HYPOXEMIC RESPIRATORY Physical Exam Vital Signs: Temp Pulse Resp BP Pulse Ox 97.8 F 65 20 98/71 L 94 08/18/20 12:40 08/18/20 12:40 08/18/20 03:27 08/18/20 12:40 08/18/20 12:40 Intake & Output 08/17/20 08/18/20 08/19/20 06:59 06:59 06:59 Intake Total 2220 1435 500 Output Total 1705 500 Balance 515 935 500 General appearance: PRESENT: no acute distress, cooperative Neck exam: ABSENT: JVD Respiratory exam: PRESENT: crackles - very mild, symmetrical, unlabored. ABSENT: tachypnea, wheezes Cardiovascular exam: PRESENT: RRR, +S1, +S2. ABSENT: tachycardia GI/Abdominal exam: PRESENT: soft. ABSENT: rebound, rigid, tenderness Neurological exam: PRESENT: alert, awake, oriented to person, oriented to place, oriented to time Results Laboratory Results: 08/18/20 06:33 08/18/20 06:33 08/18/20 08/18/20 06:33 06:33 WBC 14.3 H RBC 4.64 Hgb 13.4 L Hct 39.3 MCV 85 MCH 28.9 MCHC 34.0 RDW 14.8 H Plt Count 378 Seg Neutrophils % 82.7 H Sodium 136.1 L Potassium 4.5 Chloride 102 Carbon Dioxide 27 Anion Gap 7 BUN 23 H Creatinine 0.92 Est GFR ( Amer) > 60 Glucose 144 H Calcium 9.3 08/15/20 06:16 Sputum Gram Stain - Final 08/15/20 06:16 Sputum Sputum Culture - Final NORMAL CESAR 08/15/20 03:06 Troponin I < 0.012 Impressions: Chest X-Ray 08/15/20 00:00 IMPRESSION: Possible bibasilar pneumonia. Assessment and Plan - Diagnosis (1) Pneumonia due to COVID-19 virus Is this a current diagnosis for this admission?: Yes Plan: Covid-19 test: 08/12 -CXR showed: Bilateral infiltrates Status post ivermectin x2 Day 3/5 of remdesivir Continue Solu-Medrol and doxycycline Continue vitamin and zinc supplements. Updated his (2) Acute respiratory failure with hypoxia Is this a current diagnosis for this admission?: Yes Plan: He is down to 3 L nasal cannula today. We will continue to wean as tolerated. Continue treatment for Covid (3) Chronic asthma Qualifiers: Asthma severity: mild Asthma persistence: intermittent Asthma complication type: uncomplicated Qualified Code(s): J45.20 - Mild intermittent asthma, uncomplicated Is this a current diagnosis for this admission?: Yes Plan: Not in acute exacerbation. Albuterol. (4) T2DM (type 2 diabetes mellitus) Qualifiers: Diabetes mellitus intermission coordinator insulin use: without retirement use Diabetes mellitus complication status: without complication Qualified Code(s): E11.9 - Type 2 diabetes mellitus without complications Is this a current diagnosis for this admission?: Yes Plan: Sliding scale insulin and Accu-Cheks. (5) Obesity (BMI 30-39.9) Is this a current diagnosis for this admission?: Yes - Time Time Spent with patient: 15-24 minutes Anticipated Discharge Disposition: Home, Self Care Anticipated Discharge Timeframe: within 48 hours
[2020-08-18] MEDS: SODIUM CHLORIDE NASAL SPRAY 44 ML NASL SCH ×2 (20:36→21:48)
[2020-08-18] MEDS: ATORVASTATIN CALCIUM 40 MG TABLET PO SCH (21:45)
[2020-08-18] MEDS: MELATONIN 5 MG TABLET PO SCH (21:45)
[2020-08-19] MEDS: ALBUTEROL SULFATE HFA (90 MCG/PUFF) 8 GM MDI IH SCH ×4 (00:03→18:10)
[2020-08-19] MEDS: ACETAMINOPHEN 325 MG TABLET PO PRN (04:14)
[2020-08-19] MEDS: METHYLPREDNISOLONE INJ 40 MG/1 ML SDV IV SCH ×2 (05:34→18:06)
[2020-08-19] MEDS: DOXYCYCLINE HYCLATE 100 MG in DEXTROSE 5%-WATER 250 ML IV SCH (05:34)
[2020-08-19] MEDS: SODIUM CHLORIDE NASAL SPRAY 44 ML NASL SCH ×3 (05:50→22:04)
[2020-08-19] MEDS: ASCORBIC ACID 500 MG TABLET PO SCH ×2 (09:32→18:06)
[2020-08-19] MEDS: DOCUSATE SODIUM 100 MG CAPSULE PO SCH ×2 (09:32→12:33)
[2020-08-19] MEDS: TAMSULOSIN HCL 0.4 MG CAP.SR.24H PO SCH (09:32)
[2020-08-19] MEDS: CHOLECALCIFEROL (D3) 1,000 UNIT (25 MCG) TABLET PO SCH (09:32)
[2020-08-19] MEDS: INSULIN LISPRO 100 UNIT/ML 3 ML VIAL SUBCUT SCH ×4 (09:32→22:04)
[2020-08-19] MEDS: ZINC SULFATE 220 MG CAPSULE PO SCH (09:32)
[2020-08-19] MEDS: ENOXAPARIN SODIUM INJ 40 MG/0.4 ML DISP.SYRIN SUBCUT SCH (09:33)
[2020-08-19] MEDS: VITAMIN B COMPLEX TABLET PO SCH (09:47)
[2020-08-19] MEDS: REMDESIVIR 100 MG in NORMAL SALINE 250 ML IV SCH (09:48)
--- NOTE | 2020-08-19 13:47 | PDOC PROGRESS REPORT ---
Subjective Date:: 08/19/20 Subjective:: Patient feels better. He still gets dyspneic when he ambulates to the bathroom. Otherwise comfortable at rest. He denies any chest pain. He has been getting up and into the chair by himself without difficulties. Reason For Visit: COVID19 PNEUMONIA,ACUTE HYPOXEMIC RESPIRATORY Physical Exam Vital Signs: Temp Pulse Resp BP Pulse Ox 97.4 F 63 20 118/58 L 96 08/19/20 11:58 08/19/20 11:58 08/19/20 11:58 08/19/20 11:58 08/19/20 11:58 Intake & Output 08/18/20 08/19/20 08/20/20 06:59 06:59 06:59 Intake Total 1435 1630 250 Output Total 500 2750 Balance 935 -1120 250 Weight 104.5 kg General appearance: PRESENT: no acute distress, cooperative Neck exam: ABSENT: JVD Respiratory exam: PRESENT: clear to auscultation shereen, symmetrical, unlabored. ABSENT: tachypnea, wheezes Cardiovascular exam: PRESENT: RRR, +S1, +S2. ABSENT: tachycardia GI/Abdominal exam: PRESENT: soft. ABSENT: rebound, rigid, tenderness Musculoskeletal exam: PRESENT: ambulatory Neurological exam: PRESENT: alert, awake, oriented to person, oriented to place, oriented to time Psychiatric exam: ABSENT: agitated, anxious Results Laboratory Results: 08/18/20 06:33 08/18/20 06:33 08/15/20 03:06 Troponin I < 0.012 Impressions: Chest X-Ray 08/15/20 00:00 IMPRESSION: Possible bibasilar pneumonia. Assessment and Plan - Diagnosis (1) Pneumonia due to COVID-19 virus Is this a current diagnosis for this admission?: Yes Plan: Covid-19 test: 08/12 -CXR showed: Bilateral infiltrates Status post ivermectin x2 Day 4/5 of remdesivir Continue Solu-Medrol and doxycycline. We will start to wean Solu-Medrol. Continue vitamin and zinc supplements. Check inflammatory markers (2) Acute respiratory failure with hypoxia Is this a current diagnosis for this admission?: Yes Plan: Notably satting 100% on 3 L nasal cannula this morning. I reduced it to 1.5 L nasal cannula. We will try to wean him off oxygen today. (3) Chronic asthma Qualifiers: Asthma severity: mild Asthma persistence: intermittent Asthma complication type: uncomplicated Qualified Code(s): J45.20 - Mild intermittent asthma, uncomplicated Is this a current diagnosis for this admission?: Yes Plan: Not in acute exacerbation. Albuterol. (4) T2DM (type 2 diabetes mellitus) Qualifiers: Diabetes mellitus detention insulin use: without termination clerk use Diabetes mellitus complication status: without complication Qualified Code(s): E11.9 - Type 2 diabetes mellitus without complications Is this a current diagnosis for this admission?: Yes Plan: Sliding scale insulin and Accu-Cheks. BG has been adequate. (5) Obesity (BMI 30-39.9) Is this a current diagnosis for this admission?: Yes - Time Time Spent with patient: Less than 15 minutes Anticipated Discharge Disposition: Home, Self Care Anticipated Discharge Timeframe: within 24 hours
[2020-08-19] MEDS: ATORVASTATIN CALCIUM 40 MG TABLET PO SCH (22:04)
[2020-08-19] MEDS: MELATONIN 5 MG TABLET PO SCH (22:04)
[2020-08-20] MEDS: ALBUTEROL SULFATE HFA (90 MCG/PUFF) 8 GM MDI IH SCH ×5 (00:35→23:29)
[2020-08-20] MEDS: SODIUM CHLORIDE NASAL SPRAY 44 ML NASL SCH ×3 (05:32→21:24)
[2020-08-20] MEDS: METHYLPREDNISOLONE INJ 40 MG/1 ML SDV IV SCH ×2 (05:32→18:38)
[2020-08-20] MEDS: DOXYCYCLINE HYCLATE 100 MG in DEXTROSE 5%-WATER 250 ML IV SCH (05:33)
[2020-08-20 06:53] LABS: C-REACTIVE PROTEIN 31.6 mg/L (<10.0)
[2020-08-20] MEDS: HYDROCODONE/ACETAMINOPHEN 5-325 MG TABLET PO PRN (07:54)
[2020-08-20] MEDS: TAMSULOSIN HCL 0.4 MG CAP.SR.24H PO SCH (09:48)
[2020-08-20] MEDS: CHOLECALCIFEROL (D3) 1,000 UNIT (25 MCG) TABLET PO SCH (09:48)
[2020-08-20] MEDS: ASCORBIC ACID 500 MG TABLET PO SCH ×2 (09:48→18:38)
[2020-08-20] MEDS: ZINC SULFATE 220 MG CAPSULE PO SCH (09:48)
[2020-08-20] MEDS: VITAMIN B COMPLEX TABLET PO SCH (09:49)
[2020-08-20] MEDS: ENOXAPARIN SODIUM INJ 40 MG/0.4 ML DISP.SYRIN SUBCUT SCH (09:49)
[2020-08-20] MEDS: INSULIN LISPRO 100 UNIT/ML 3 ML VIAL SUBCUT SCH ×4 (09:50→21:19)
[2020-08-20] MEDS: DOCUSATE SODIUM 100 MG CAPSULE PO SCH (09:52)
[2020-08-20] MEDS: REMDESIVIR 100 MG in NORMAL SALINE 250 ML IV SCH (09:56)
--- NOTE | 2020-08-20 14:52 | PDOC PROGRESS REPORT ---
Subjective Date:: 08/20/20 Subjective:: Patient feels better today. He still gets quite winded when he ambulates even s hort distances. Reason For Visit: COVID19 PNEUMONIA,ACUTE HYPOXEMIC RESPIRATORY Physical Exam Vital Signs: Temp Pulse Resp BP Pulse Ox 98.1 F 65 20 111/56 L 88 L 08/20/20 12:05 08/20/20 12:05 08/20/20 12:05 08/20/20 12:05 08/20/20 12:05 Intake & Output 08/19/20 08/20/20 08/21/20 06:59 06:59 06:59 Intake Total 1630 1480 Output Total 2750 3315 Balance -1120 -1835 Weight 104.5 kg 104.9 kg General appearance: PRESENT: no acute distress, cooperative Neck exam: ABSENT: JVD Respiratory exam: PRESENT: clear to auscultation shereen, symmetrical, unlabored. ABSENT: tachypnea, wheezes Cardiovascular exam: PRESENT: RRR, +S1, +S2. ABSENT: tachycardia GI/Abdominal exam: PRESENT: soft. ABSENT: rebound, rigid, tenderness Neurological exam: PRESENT: alert, awake, oriented to person, oriented to place, oriented to time Results Laboratory Results: 08/18/20 06:33 08/18/20 06:33 08/20/20 06:08 Ferritin 373.00 C-Reactive Protein 31.6 H 08/15/20 02:10 Blood Blood Culture - Final NO GROWTH IN 5 DAYS 08/15/20 01:25 Blood Blood Culture - Final NO GROWTH IN 5 DAYS 08/15/20 03:06 Troponin I < 0.012 Impressions: Chest X-Ray 08/15/20 00:00 IMPRESSION: Possible bibasilar pneumonia. Assessment and Plan - Diagnosis (1) Pneumonia due to COVID-19 virus Is this a current diagnosis for this admission?: Yes (2) Acute respiratory failure with hypoxia Is this a current diagnosis for this admission?: Yes (3) Chronic asthma Qualifiers: Asthma severity: mild Asthma persistence: intermittent Asthma complication type: uncomplicated Qualified Code(s): J45.20 - Mild intermittent asthma, uncomplicated Is this a current diagnosis for this admission?: Yes (4) T2DM (type 2 diabetes mellitus) Qualifiers: Diabetes mellitus ferry terminal supervisor insulin use: without chcf use Diabetes mellitus complication status: without complication Qualified Code(s): E11.9 - Type 2 diabetes mellitus without complications Is this a current diagnosis for this admission?: Yes (5) Obesity (BMI 30-39.9) Is this a current diagnosis for this admission?: Yes - Plan Summary Summary: Patient received his last dose of remdesivir today. We did an ambulatory pulse oximetry on him and his saturation did drop to 85% on room air. His oxygen saturation is normal at rest. His oxygenation has shown good improvement with treatment of his COVID-19 pneumonia. He still gets quite winded when ambulating even short distances. I believe this is secondary to his COVID-19 and I have discussed with him that this persistent dyspnea might happen even for a few weeks despite the improvement of his oxygenation. Suspicion for pulmonary embolism was low to intermediate at best and with negative D-dimers since admission and even today, the negative predictive value for PE is very high and essentially rules it out. I will check a proBNP level. We will secure 2 L nasal cannula for him before discharge. Continue steroids and doxycycline. - Time Time Spent with patient: 15-24 minutes Anticipated Discharge Disposition: Home, Self Care Anticipated Discharge Timeframe: within 24 hours
[2020-08-20] MEDS: MELATONIN 5 MG TABLET PO SCH (21:19)
[2020-08-20] MEDS: ATORVASTATIN CALCIUM 40 MG TABLET PO SCH (21:19)
[2020-08-21] MEDS ORDERED: DOXYCYCLINE HYCLATE INJ 100 MG VIAL ONE (05:57)
[2020-08-21] MEDS: METHYLPREDNISOLONE INJ 40 MG/1 ML SDV IV SCH ×2 (06:06→17:19)
[2020-08-21] MEDS: DOXYCYCLINE HYCLATE 100 MG in DEXTROSE 5%-WATER 250 ML IV SCH (06:06)
[2020-08-21] MEDS: ALBUTEROL SULFATE HFA (90 MCG/PUFF) 8 GM MDI IH SCH ×3 (06:07→17:23)
[2020-08-21] MEDS: SODIUM CHLORIDE NASAL SPRAY 44 ML NASL SCH ×2 (06:20→13:30)
[2020-08-21] MEDS: HYDROCODONE/ACETAMINOPHEN 5-325 MG TABLET PO PRN (07:25)
[2020-08-21] MEDS: INSULIN LISPRO 100 UNIT/ML 3 ML VIAL SUBCUT SCH ×4 (07:26→15:42)
[2020-08-21] MEDS: ASCORBIC ACID 500 MG TABLET PO SCH ×2 (09:02→17:19)
[2020-08-21] MEDS: CHOLECALCIFEROL (D3) 1,000 UNIT (25 MCG) TABLET PO SCH (09:02)
[2020-08-21] MEDS: DOCUSATE SODIUM 100 MG CAPSULE PO SCH (09:03)
[2020-08-21] MEDS: ZINC SULFATE 220 MG CAPSULE PO SCH (09:03)
[2020-08-21] MEDS: TAMSULOSIN HCL 0.4 MG CAP.SR.24H PO SCH (09:03)
[2020-08-21] MEDS: ACETAMINOPHEN 325 MG TABLET PO PRN (09:04)
[2020-08-21] MEDS: VITAMIN B COMPLEX TABLET PO SCH (09:06)
[2020-08-21] MEDS: ENOXAPARIN SODIUM INJ 40 MG/0.4 ML DISP.SYRIN SUBCUT SCH (09:07)
--- NOTE | 2020-08-21 13:29 | PDOC DISCHARGE SUMMARY ---
Impression - Admit/DC Date/PCP Admission Date/Primary Care Provider: 08/15/20 04:58 SONIA URRUTIA MD Discharge Date: 08/21/20 - Discharge Diagnosis (1) Pneumonia due to COVID-19 virus Is this a current diagnosis for this admission?: Yes (2) Acute respiratory failure with hypoxia Is this a current diagnosis for this admission?: Yes (3) Chronic asthma Is this a current diagnosis for this admission?: Yes (4) T2DM (type 2 diabetes mellitus) Is this a current diagnosis for this admission?: Yes (5) Obesity (BMI 30-39.9) Is this a current diagnosis for this admission?: Yes (6) Anxiety Is this a current diagnosis for this admission?: Yes (7) Persistent dyspnea after severe acute respiratory syndrome coronavirus 2 (SARS-CoV-2) infection Is this a current diagnosis for this admission?: Yes - Additional Information Resuscitation Status: Full Code Discharge Diet: Cardiac, Diabetic Discharge Activity: Activity As Tolerated, Balance Activity w/Rest Referrals: SONIA URRUTIA MD [Primary Care Provider] - Follow up as needed Prescriptions: Prednisone [Deltasone 5 mg Tablet] See Protocol PO BID #45 tablet Doxycycline Hyclate [Morgidox] 100 mg PO Q12 3 Days #6 capsule Ascorbic Acid [Vitamin C 500 mg Tablet] 1,000 mg PO BID #60 tablet Cholecalciferol (Vitamin D3) [Vitamin D3 1000 Unit Tablet] 1,000 unit PO DAILY #20 tablet Alprazolam [Xanax 0.5 mg Tablet] 0.5 mg PO BIDP PRN #10 tab PRN Reason: Zinc Sulfate [Zinc-220 Capsule] 220 mg PO DAILY #15 capsule Home Medications: Hydrocodone Bit/Homatropine [Hycodan 5-1.5 mg Tablet] 1 tab PO Q4HP PRN #24 tablet 08/12/20 Albuterol Sulfate [Albuterol Sulfate Hfa] 2 puff IH Q4HP PRN 08/15/20 Dapagliflozin Propanediol [Farxiga] 5 mg PO DAILY 08/15/20 Ipratropium/Albuterol Sulfate [Duoneb 3 ml Ampul] 3 ml NEB RTQ6HP PRN 08/15/20 Rosuvastatin Calcium [Crestor] 20 mg PO QHS 08/15/20 Ascorbic Acid [Vitamin C 500 mg Tablet] 1,000 mg PO BID #60 tablet 08/20/20 Cholecalciferol (Vitamin D3) [Vitamin D3 1000 Unit Tablet] 1,000 unit PO DAILY #20 tablet 08/20/20 Doxycycline Hyclate [Morgidox] 100 mg PO Q12 3 Days #6 capsule 08/20/20 Prednisone [Deltasone 5 mg Tablet] See Protocol PO BID #45 tablet 08/20/20 Zinc Sulfate [Zinc-220 Capsule] 220 mg PO DAILY #15 capsule 08/20/20 Alprazolam [Xanax 0.5 mg Tablet] 0.5 mg PO BIDP PRN #10 tab 08/21/20 History of Present Illiness History of Present Illness: According to admitting provider: REN MALIN SR is a 60 year old male with past medical history significant for T2DM, chronic asthma who presents the ED with 5-day history of progressive fever/chills/shortness of breath/FABIAN/productive cough. Patient's diagnosed with COVID-19 on 08/05/2020 and patient began developing symptoms on 08/11, subsequently tested positive for COVID-19 on 08/12 patient came to the ED here. Patient was discharged home with oral steroids and azithromycin. Unfortunately, patient continued to decline with regards to his breathing status and he returned to the hospital today with oxygen saturations in the mid to lower 80s at rest. Patient does not require home oxygen prior to admission. Chest x-ray showed bilateral infiltrates. WBC count 9.2. Patient was given a dose of Levaquin in the ED. Patient admitted to Covid unit with standard of care treatment. Hospital Course Hospital Course: Patient was admitted to the hospital and treated for COVID-19 pneumonia and hypoxic respiratory failure secondary to Covid. During his hospitalization, he required as much as 5 to 6 L on nasal cannula. His D-dimers have all remained normal. BNP was normal. He did have high inflammatory markers initially which improved. Patient was treated with [facility] protocol with ivermectin, Solu-Medrol and doxycycline. He also completed treatment with 5 days of remdesivir. He showed remarkable improvement of his oxygenation over the course of his treatment. He has been on room air for the past 2 days with adequate saturation at rest. However, when he ambulates, he desaturates to about 85 to 86% on room air. As such he has been qualified for home oxygen 2L nc only needed when he is ambulating but not needed when he is at rest. He has been advised to stay off work for at least 2 weeks and to avoid strenuous activities. I did also notice occasional episodes of anxiety during which was noted to become remarkably tachypneic, huffing and puffing but not hypoxic during those episodes. He often is able to calm down after redirection but may take a while. I did send a few doses of Xanax to help him out. I suspect he gets very anxious especially about his health which provokes his dyspnea from his Covid. I have communicated plan for discharge with him, his as well as his aunt who is a physician herself. Physical Exam Vital Signs: Temp Pulse Resp BP Pulse Ox 98.0 F 72 18 108/71 94 08/21/20 11:33 08/21/20 11:33 08/21/20 11:33 08/21/20 11:33 08/21/20 11:33 Intake & Output 08/20/20 08/21/20 08/22/20 06:59 06:59 06:59 Intake Total 1480 1517 250 Output Total 3315 2435 Balance -1835 -918 250 Weight 104.9 kg 104.9 kg General appearance: PRESENT: no acute distress, cooperative Neck exam: ABSENT: JVD Respiratory exam: PRESENT: clear to auscultation shereen, symmetrical, unlabored. ABSENT: tachypnea, wheezes Cardiovascular exam: PRESENT: RRR, +S1, +S2. ABSENT: tachycardia GI/Abdominal exam: PRESENT: soft. ABSENT: rebound, rigid, tenderness Musculoskeletal exam: PRESENT: ambulatory Neurological exam: PRESENT: alert, awake, oriented to person, oriented to place, oriented to time, oriented to situation Results Laboratory Results: WBC 14.3 10^3/uL (4.0-10.5) H 08/18/20 06:33 RBC 4.64 10^6/uL (4.35-5.55) 08/18/20 06:33 Hgb 13.4 g/dL (13.5-17.0) L 08/18/20 06:33 Hct 39.3 % (37.9-51.0) 08/18/20 06:33 MCV 85 fl (80-97) 08/18/20 06:33 MCH 28.9 pg (27.0-33.4) 08/18/20 06:33 MCHC 34.0 g/dL (32.0-36.0) 08/18/20 06:33 RDW 14.8 % (11.5-14.0) H 08/18/20 06:33 Plt Count 378 10^3/uL (150-450) 08/18/20 06:33 Lymph % (Auto) 5.3 % (13-45) L 08/18/20 06:33 [place] % (Auto) 11.3 % (3-13) 08/18/20 06:33 Eos % (Auto) 0.0 % (0-6) 08/18/20 06:33 Baso % (Auto) 0.7 % (0-2) 08/18/20 06:33 Absolute Neuts (auto) 11.8 10^3/uL (1.7-8.2) H 08/18/20 06:33 Absolute Lymphs (auto) 0.8 10^3/uL (0.5-4.7) 08/18/20 06:33 Absolute Monos (auto) 1.6 10^3/uL (0.1-1.4) H 08/18/20 06:33 Absolute Eos (auto) 0.0 10^3/uL (0.0-0.6) 08/18/20 06:33 Absolute Basos (auto) 0.1 10^3/uL (0.0-0.2) 08/18/20 06:33 Total Counted 100 08/17/20 05:37 Seg Neutrophils % 82.7 % (42-78) H 08/18/20 06:33 Seg Neuts % (Manual) 84 % (42-78) H 08/17/20 05:37 Lymphocytes % (Manual) 8 % (13-45) L 08/17/20 05:37 Atypical Lymphs % 1 % (0) 08/16/20 06:01 Monocytes % (Manual) 8 % (3-13) 08/17/20 05:37 Eosinophils % (Manual) 0 % (0-6) 08/17/20 05:37 Basophils % (Manual) 0 % (0-2) 08/17/20 05:37 Abs Neuts (Manual) 12.0 10^3/uL (1.7-8.2) H 08/17/20 05:37 Abs Lymphs (Manual) 1.1 10^3/uL (0.5-4.7) 08/17/20 05:37 Abs Monocytes (Manual) 1.1 10^3/uL (0.1-1.4) 08/17/20 05:37 Absolute Eos (Manual) 0.0 10^3/uL (0.0-0.6) 08/17/20 05:37 Abs Basophils (Manual) 0.0 10^3/uL (0.0-0.2) 08/17/20 05:37 Clumped Platelets PRESENT 08/16/20 06:01 Platelet Comment ADEQUATE 08/17/20 05:37 Poikilocytosis SLIGHT 08/16/20 06:01 Anisocytosis SLIGHT 08/16/20 06:01 Ovalocytes SLIGHT 08/16/20 06:01 RBC Morph Comment NORMO-CYTIC/CHROMIC 08/17/20 05:37 D-Dimer 0.37 ug/mL (0.00-0.50) 08/20/20 06:08 VBG pH 7.44 (7.30-7.42) H 08/15/20 01:25 VBG pCO2 39.0 mmHg (35-63) 08/15/20 01:25 VBG HCO3 25.9 mmol/L (20-32) 08/15/20 01:25 VBG Base Excess 1.8 mmol/L 08/15/20 01:25 Sodium 136.1 mmol/L (137-145) L 08/18/20 06:33 Potassium 4.5 mmol/L (3.6-5.0) 08/18/20 06:33 Chloride 102 mmol/L (98-107) 08/18/20 06:33 Carbon Dioxide 27 mmol/L (22-30) 08/18/20 06:33 Anion Gap 7 (5-19) 08/18/20 06:33 BUN 23 mg/dL (7-20) H 08/18/20 06:33 Creatinine 0.92 mg/dL (0.52-1.25) 08/18/20 06:33 Est GFR ( Amer) > 60 (>60) 08/18/20 06:33 Est GFR (MDRD) Non-Af > 60 (>60) 08/18/20 06:33 Glucose 144 mg/dL (75-110) H 08/18/20 06:33 POC Glucose 187 mg/dL (70-110) H 08/21/20 08:52 Lactic Acid 1.4 mmol/L (0.7-2.1) 08/15/20 01:25 Calcium 9.3 mg/dL (8.4-10.2) 08/18/20 06:33 Phosphorus 3.6 mg/dL (2.5-4.5) 08/16/20 06:01 Magnesium 2.5 mg/dL (1.6-2.3) H 08/16/20 06:01 Ferritin 373.00 ng/mL (17.9-464.0) 08/20/20 06:08 Total Bilirubin 0.8 mg/dL (0.2-1.3) 08/15/20 01:25 Direct Bilirubin 0.3 mg/dL (0.0-0.4) 08/15/20 01:25 Neonat Total Bilirubin Not Reportable 08/15/20 01:25 Neonat Direct Bilirubin Not Reportable 08/15/20 01:25 Neonat Indirect Bili Not Reportable 08/15/20 01:25 AST 29 U/L (17-59) 08/15/20 01:25 ALT 25 U/L (<50) 08/15/20 01:25 Alkaline Phosphatase 79 U/L (38-126) 08/15/20 01:25 Troponin I < 0.012 ng/mL 08/15/20 03:06 C-Reactive Protein 31.6 mg/L (<10.0) H 08/20/20 06:08 NT-Pro-B Natriuret Pep 73 pg/mL (<125) 08/20/20 06:08 Total Protein 7.1 g/dL (6.3-8.2) 08/15/20 01:25 Albumin 3.8 g/dL (3.5-5.0) 08/15/20 01:25 Urine Color YELLOW 08/15/20 06:08 Urine Appearance CLEAR 08/15/20 06:08 Urine pH 7.0 (5.0-9.0) 08/15/20 06:08 Ur Specific [place] 1.025 08/15/20 06:08 Urine Protein 30 mg/dL (NEGATIVE) H 08/15/20 06:08 Urine Glucose (UA) >=500 mg/dL (NEGATIVE) H 08/15/20 06:08 Urine Ketones TRACE mg/dL (NEGATIVE) H 08/15/20 06:08 Urine Blood SMALL (NEGATIVE) H 08/15/20 06:08 Urine Nitrite NEGATIVE (NEGATIVE) 08/15/20 06:08 Urine Bilirubin NEGATIVE (NEGATIVE) 08/15/20 06:08 Urine Urobilinogen NEGATIVE mg/dL (<2.0) 08/15/20 06:08 Ur Leukocyte Esterase NEGATIVE (NEGATIVE) 08/15/20 06:08 Urine WBC (Auto) 1 /HPF 08/15/20 06:08 Urine RBC (Auto) 5 /HPF 08/15/20 06:08 Urine Ascorbic Acid NEGATIVE (NEGATIVE) 08/15/20 06:08 08/15/20 08/20/20 03:06 06:08 Troponin I < 0.012 NT-Pro-B Natriuret Pep 73 Impressions: Chest X-Ray 08/15/20 00:00 IMPRESSION: Possible bibasilar pneumonia. Plan Time Spent: Less than 30 Minutes Stroke Is this a Stroke Patient?: No Acute Heart Failure Is this a Heart Failure Patient?: No
[2020-08-21 16:50] VITALS: BP 117/61
== END 2020-08-21 17:53 | disposition home or self-care (01) | DRG 177 ==
LOC: ER 01:15 → EH 04:58 → 3S 07:51
PROVIDERS: ADMIT Internal Medicine; ATTEND Internal Medicine
PROC: XW033E5 Introduction of Remdesivir Anti-infective into Peripheral Vein, Percutaneous Approach, New Technology Group 5 (ICD-10-PCS; principal; 2020-08-15)
PROC: 3E02340 Introduction of Influenza Vaccine into Muscle, Percutaneous Approach (ICD-10-PCS; 2020-08-20)
DX: U07.1 COVID-19 (principal); J12.82 Pneumonia due to coronavirus disease 2019; J96.01 Acute respiratory failure with hypoxia; J12.81 Pneumonia due to SARS-associated coronavirus; E11.9 Type 2 diabetes mellitus without complications; E66.9 Obesity, unspecified; F41.9 Anxiety disorder, unspecified; E78.5 Hyperlipidemia, unspecified; J45.20 Mild intermittent asthma, uncomplicated; Z68.36 Body mass index [BMI] 36.0-36.9, adult; Z23 Encounter for immunization; Z87.891 Personal history of nicotine dependence; Z79.899 Other long term (current) drug therapy; Z79.891 Long term (current) use of opiate analgesic; Z88.0 Allergy status to penicillin; Z91.040 Latex allergy status
CPT/HCPCS: 36415; 71045; 80048; 80053; 81001; 82728; 82803; 82962; 83605; 83735; 83880; 84100; 84484; 85025; 85379; 86140; 87040; 87070; 87205; 90471; 90686; 93005; 93010; 96365; 99285; G0008; J1650; J1815; J1956; J2920; J3490; J7050; J7060